=== PATIENT | male | born 1970 | race Caucasian/White ===

== ENCOUNTER 2016-11-30 11:44 | Emergency (ER) | payer OTHER ==
[~2016-11-30] VITALS: Ht 190.5 cm; Wt 121.5 kg
[2016-11-30 11:47] VITALS: BP 157/92; PULSE 57; RESP 18; TEMP 98.1; O2SAT 98
[2016-11-30] MEDS ORDERED: LIPI20TA PO (11:54)
[2016-11-30] MEDS ORDERED: VALT500T PO (11:54)
[2016-11-30] MEDS ORDERED: OMEGCAP PO (11:54)
[2016-11-30] MEDS ORDERED: PRIL20TA2 PO (11:54)
[2016-11-30] MEDS ORDERED: NIAC100T2 PO (11:54)
[2016-11-30] MEDS ORDERED: ROBA750T PO (12:35)
[2016-11-30] MEDS ORDERED: HYDR-3533 PO (12:35)
[2016-11-30] MEDS ORDERED: IBUP800T23 PO (12:35)
--- NOTE | 2016-11-30 12:44 | PD ---
HPI Chief Complaint: Back/ Neck Pain or Injury Time Seen by Provider: 12:16 Travel History International Travel<30 days: No Contact w/Intl Traveler<30days: No Traveled to known affect area: No History of Present Illness HPI 46-year-old male presents to the emergency room for evaluation of low back pain that started yesterday after turning a heavy patient. 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 Denies history of low back pain. Patient states pain is localized to the right lower lumbar paraspinous musculature with radiation down the back of his leg. It stops at his knee. He took Naprosyn yesterday and today without significant relief in symptoms. Pain is worsened with certain range of motion. Denies paresthesias, loss of bowel or bladder control, or saddle anesthesia. Denies history of diabetes. PFSH Past Medical History High Cholesterol: Yes Diminished Hearing: No GERD: Yes Genitourinary: Yes (HSV) Immunizations Current: Yes Tetanus Vaccination: > 5 Years Influenza Vaccination: Yes Past Surgical History Other Surgery: Yes (SEPTOPLASTY) Social History Alcohol Use: Yes (RARE) Tobacco Use: No Substance Use: No Allergies-Medications (Allergen,Severity, Reaction): Coded Allergies: Penicillins (Verified Allergy, Unknown, UNKOWN, 11/30/16) Reported Meds & Prescriptions Reported Meds & Active Scripts Active Lortab (Hydrocodone-Acetaminophen) 5-325 Mg Tab 1 Tab PO Q6H PRN Ibuprofen 800 Mg Tab 800 Mg PO Q8H PRN Robaxin (Methocarbamol) 750 Mg Tab 750 Mg PO Q8HR Reported Niacin 100 Mg Tab 100 Mg PO DAILY [place]-3 Fish Oil/Vitamin (Fish Oil-Cholecalciferol) 1,000-1,000 Mg Cap 3 Cap PO DAILY Lipitor (Atorvastatin Calcium) 20 Mg Tab 20 Mg PO HS Prilosec (Omeprazole Magnesium) 20 Mg Tab 1 Tab PO DAILY Valtrex (Valacyclovir HCl) 500 Mg Tab 500 Mg PO DAILY Review of Systems Except as stated in HPI: all other systems reviewed are Neg Physical Exam Narrative GENERAL: Well-nourished, well-developed male in no acute distress. Afebrile. Ambulatory. SKIN: Focused skin assessment warm/dry. HEAD: Normocephalic. EYES: No scleral icterus. No injection or drainage. NECK: Supple, trachea midline. No JVD or lymphadenopathy. CARDIOVASCULAR: Regular rate and rhythm without murmurs, gallops, or rubs. RESPIRATORY: Breath sounds equal bilaterally. No accessory muscle use. BACK: Mild tenderness to palpation of the lumbar spine. Mild tenderness to palpation of the right paraspinous musculature. No obvious deformity. No CVA tenderness. Full range of motion of the back. Data Data Last Documented VS Vital Signs Date Time Temp Pulse Resp B/P (MAP) Pulse Ox O2 Delivery O2 Flow Rate FiO2 11/30/16 11:47 98.1 57 18 157/92 (113) 98 Orders Orders Orphenadrine Inj (Norflex Inj) (11/30/16 12:45) Ketorolac Inj (Toradol Inj) (11/30/16 12:45) Dexamethasone Inj (Decadron Inj) (11/30/16 12:45) [facility] Medical Decision Making Medical Screen Exam Complete: Yes Emergency Medical Condition: Yes Medical Record Reviewed: Yes Differential Diagnosis Strain, sprain, fracture, contusion, spasm Narrative Course 46-year-old male presents to the emergency room for evaluation of low back pain radiating down his right lower extremity starting yesterday after lifting a heavy patient and worsened today after doing the same. Patient states pain is severe, constant, aching. No focal neurological deficits. No significant midline tenderness. Patient is ambulatory. No red flag symptoms. No indication for emergent imaging at this time. This is muscle strain with sciatica. Patient given Toradol, Norflex, and Decadron in the emergency room. Discharged with prescriptions for ibuprofen, Robaxin, and Lortab. Told to return for worsening symptoms. He understands and agrees to plan. Diagnosis Primary Impression: Low back strain Qualified Codes: S39.012A - Strain of muscle, fascia and tendon of lower back , initial encounter Referrals: Primary Care Physician Additional Instructions: Rest and drink plenty of fluids. Lortab as directed, as needed for pain. Do not drink alcohol or drive while taking this medication. Only take when pain is severe. Take Robaxin as directed, as needed for pain. Take ibuprofen with food as directed, as needed for pain. Apply ice to the affected area for 20 minutes at a time, as needed for pain and swelling. Please follow up as soon as possible with [facility] Human Resources for referral to an authorized Workers Compensation Doctor. Call Human Resources at [phone] or [phone]. Med/Other Pt SpecificInfo: Prescription(s) given Scripts Hydrocodone-Acetaminophen (Lortab) 5-325 Mg Tab 1 TAB PO Q6H Y for PAIN, #10 TAB 0 Refills Prov: Azeme Burrows MD 11/30/16 Ibuprofen (Ibuprofen) 800 Mg Tab 800 MG PO Q8H Y for Pain/Inflammation, #21 TAB 0 Refills Prov: Azeem Burrows MD 11/30/16 Methocarbamol (Robaxin) 750 Mg Tab 750 MG PO Q8HR for Muscle Spasm, #21 TAB 0 Refills Prov: Azeem Burrows MD 11/30/16 Disposition: 01 DISCHARGE HOME Condition: Stable Rehana Olivas Nov 30, 2016 12:44
[2016-11-30] MEDS ORDERED: ORPHENADRINE INJ 60 MG/2 ML AMP IM ONE (12:45)
[2016-11-30] MEDS ORDERED: KETOROLAC TROMETHAMINE 60 MG/2 ML (IM) VIAL IM ONE (12:45)
[2016-11-30] MEDS ORDERED: DEXAMETHASONE SOD PHOS 4 MG/ML VIAL IM ONE (12:45)
== END 2016-11-30 13:00 | disposition home or self-care (01) ==
LOC: PHEFT 11:44
DX: S39.012A Strain of muscle, fascia and tendon of lower back, initial encounter (principal); M54.31 Sciatica, right side; E78.00 Pure hypercholesterolemia, unspecified; Z87.19 Personal history of other diseases of the digestive system; Z87.448 Personal history of other diseases of urinary system; X50.0XXA Overexertion from strenuous movement or load, initial encounter; Y93.F2 Activity, caregiving, lifting; Y92.239 Unspecified place in hospital as the place of occurrence of the external cause; Y99.0 Civilian activity done for income or pay
CPT/HCPCS: 96372; 99284; J1100; J1885; J2360